=== PATIENT | male | born 1940 | race Caucasian/White ===

== ENCOUNTER 2018-10-21 15:58 | Observation (INO) ==
[2018-10-21] MEDS ORDERED: Aspirin 81 MG TAB.CHEW PO ONE (16:10)
[2018-10-21] MEDS ORDERED: Nitroglycerin 0.4 MG TAB.SUBL SL PRN (16:11)
--- NOTE | 2018-10-21 16:15 | Emergency Department Note ---
Disposition Clinical Impression: Palpitations, Lightheaded Chest pain Qualifiers: Chest pain type: unspecified Qualified Code(s): R07.9 - Chest pain, unspecified Disposition: Admitted As Inpatient Condition: Fair Referrals: Promise Dunbar MD [Primary Care Provider] - Forms: ED Satisfaction Letter Chest Pain HPI - General Chief Complaint: ED Chest Pain Stated Complaint: "A-Fib" Time Seen by Provider: 10/21/18 16:01 Source: patient Mode of arrival: private vehicle Limitations: no limitations Vital Signs Reviewed: Yes Nursing Notes Reviewed: Yes - History of Present Illness HPI Narrative: 78-year-old male history of hypertension, previous ablation for ventricular tachycardia in 1997 presents to the ER with complaint of chest pressure and lightheadedness. The patient reports this is been an on and off issue for the last few months. It happens roughly 1-2 times a week. He has been seen by his primary care provider who did a 30 day Holter monitor. They saw them last week who said he had "an event" but is not sure exactly what it was. They are currently attempting to see electrophysiology here but were requiring records from his prior ablation. States that today his pressure started this morning more severe and lasted longer than usual up until arrival to the ER. Also states that he feels lightheaded with the events. His pain is improved to a 3 upon arrival. No other complaints. Pt complaint: chest pain Onset (ago): week(s) Duration: intermittent Pain Location: left chest Severity: mild Severity scale (1-10): 3 Quality: heaviness Pain Radiation: none Improves with: nothing Worsens with: nothing Associated symptoms: Reports: other (Near-syncope) Treatments prior to arrival chest pain: aspirin All systems ED: reviewed and negative except as stated. Cardiovascular: Reports: chest pain, palpitations Respiratory: Denies: dyspnea Gastrointestinal: Denies: abdominal pain, nausea, vomiting Physical Exam - General Limitations: no limitations General appearance: alert, in no apparent distress - Head Head exam: atraumatic, normocephalic, normal inspection - Eye Eye exam: Present: normal appearance - ENT ENT exam: normal exam - Neck Neck exam: Present: normal inspection - Chest Chest inspection: Present: normal inspection, symmetric chest wall rise - Respiratory Respiratory exam: Present: normal lung sounds bilaterally - Cardiovascular Cardiovascular exam: Present: regular rate, normal rhythm, normal heart sounds - Abdominal Exam Abdominal exam: Present: soft, Non-Tender. Absent: tenderness, distention, rigidity - Extremities Exam Extremities exam: Present: normal inspection, full ROM - Expanded Upper Extremity Exam Shoulder exam: Present: normal inspection, full ROM Arm exam: Present: normal inspection, full ROM Elbow exam: Present: normal inspection, full ROM Forearm/Wrist exam: Present: normal inspection, full ROM Hand exam: Present: normal inspection, full ROM - Expanded Lower Extremity Exam Hip/Pelvis exam: Present: normal inspection, full ROM Upper leg exam: Present: normal inspection, full ROM Knee exam: Present: normal inspection, full ROM Lower leg exam: Present: normal inspection, full ROM Ankle exam: Present: normal inspection, full ROM Foot/toe exam: Present: normal inspection, full ROM - Skin Skin exam: Present: warm, dry Course Course Narrative: Patient seen and examined. Vital signs reviewed. Plan for EKG, chest x-ray, labs including troponin. I discussed with the patient that he likely requires admission. We will give him aspirin and nitroglycerin here. Vital Signs Temperature 98.4 F 10/21/18 16:11 Pulse Rate 86 10/21/18 16:11 Respiratory Rate 18 10/21/18 16:11 Blood Pressure 176/85 10/21/18 16:11 O2 Sat by Pulse Oximetry 97 10/21/18 16:11 Temperature 98.4 F 10/21/18 16:11 Pulse Rate 85 10/21/18 17:06 Respiratory Rate 16 10/21/18 17:06 Blood Pressure 163/92 10/21/18 17:06 O2 Sat by Pulse Oximetry 97 10/21/18 17:06 Oxygen Delivery Oxygen Delivery Room Air Chest Pain - [facility] Narrative Medical decision making narrative: 78-year-old male presenting with chest pain, palpitations and near syncope. He is well-appearing here. EKG is unremarkable. Chest x-ray and labs are grossly unremarkable. Given his prior history of ventricular tachycardia requiring ablation and similar although less severe symptoms this time we feel it is prudent for admission. Patient agreeable. The patient is admitted to the hospitalist service. - Lab Data Lab results reviewed: Yes I reviewed the patient's lab results. Result diagrams: 10/21/18 16:27 10/21/18 16:27 Lab Results 12/16/18 12/16/18 12/16/18 Range/Units 16:27 16:27 16:27 WBC 6.0 (4.3-11.1) K/mcL RBC 5.32 (4.19-5.50) M/mcL Hgb 15.9 (12.9-16.9) g/dL Hct 45.2 (37.5-50.1) % MCV 85.0 (83.0-100.0) fL MCH 29.9 (28.0-33.3) pg MCHC 35.2 (31.6-35.5) g/dL RDW 13.7 (11.5-14.5) % Plt Count 242 (140-400) K/mcL MPV 9.2 L (9.4-12.4) fL Immature Gran % 0.3 (0-4) % Seg Neutrophils % 61.5 % Lymphocytes % 28.9 % Monocytes % 7.0 % Eosinophils % 1.8 % Basophils % 0.5 % Neutrophils # 3.7 (1.6-8.9) K/mcL Lymphocytes # 1.7 (0.6-4.6) K/mcL Monocytes # 0.4 (0.0-1.3) K/mcL Eosinophils # 0.1 (0.0-0.6) K/mcL Basophils # 0.0 (0.0-0.2) K/mcL PT 11.8 (9.4-12.1) Seconds INR 1.0 APTT 30.4 (26.0-36.0) Seconds Sodium 136 (136-145) mEq/L Potassium 4.1 (3.5-5.1) mEq/L Chloride 102 (98-107) mEq/L Carbon Dioxide 29 (23-29) mEq/L BUN 23 (8-23) mg/dL Creatinine 0.91 (0.70-1.30) mg/dL Est GFR ( Amer) > 60 (> 60) Est GFR (Non-Af Amer) > 60 (> 60) BUN/Creatinine Ratio 25 (6-26) Glucose 116 H (70-105) mg/dL Calculated Osmolality 287 (280-300) Calcium 9.3 (8.6-10.3) mg/dL Troponin I < 0.03 (< 0.04) ng/mL TSH 4.784 (0.340-5.600) mcIU/mL - Radiology Data Radiology results reviewed: Yes I reviewed the patient's radiology results. Chest X-Ray 10/21/18 16:10 IMPRESSION: No acute process. D/ / Danilo Xavier MD / Danilo Xavier MD Interpreting Provider: Danilo Xavier MD - EKG Data EKG attestation: Yes I reviewed and interpreted this EKG. EKG results narrative: EKG demonstrates sinus rhythm with a rate of 85 beats or minute. Normal axis. Normal intervals. Normal R-wave progression. No gross ST elevations or depressions. No acute ischemic findings. No significant changes from previous EKG dated 08/08/18. Heart Score - Score History: Moderately Suspicious EKG: Normal Age: Greater than 65 Risk Factors: 1-2 risk factors Troponin: Less than normal limit HEART Score Total: 4 S.B.A.Carine. - Fatmata.Judi.AJustyn Situation: Demographics, MOA Background: Presenting Complaint, Relevant PMH, Meds, & Allergies Assessment: Course and respsone to treatment, Exam Concerns, Patient/Family Expectation, Pertinant Lab Results Recommendation: Barrier(s) to disposition, Recommendation based on pending studies, treatments, or consults S.B.A.RConsuelo Report Given to: Dr. Shilo Baez Repor Time: 17:16
[2018-10-21 16:38] LABS: Basophils % 0.5 %; Eosinophils # 0.1 K/mcL (0.0-0.6); Eosinophils % 1.8 %; Hematocrit 45.2 % (37.5-50.1); Hemoglobin 15.9 g/dL (12.9-16.9); Immature Granulocytes % 0.3 % (0-4); Lymphocytes # 1.7 K/mcL (0.6-4.6); Lymphocytes % 28.9 %; Mean Corpuscular HGB Conc 35.2 g/dL (31.6-35.5); Mean Corpuscular Hemoglobin 29.9 pg (28.0-33.3); Mean Platelet Volume 9.2 fL (9.4-12.4); Monocytes # 0.4 K/mcL (0.0-1.3); Neutrophils # 3.7 K/mcL (1.6-8.9); Platelet Count 242 K/mcL (140-400); Red Blood Count 5.32 M/mcL (4.19-5.50); Red Cell Distribution Width 13.7 % (11.5-14.5); Segmented Neutrophils % 61.5 %
[2018-10-21 16:44] LABS: Prothrombin Time 11.8 Seconds (9.4-12.1)
[2018-10-21 16:47] LABS: Activated Partial Thrombo Time 30.4 Seconds (26.0-36.0)
[2018-10-21 16:59] LABS: BUN/Creatinine Ratio 25 (6-26); Blood Urea Nitrogen 23 mg/dL (8-23); Calcium 9.3 mg/dL (8.6-10.3); Carbon Dioxide 29 mEq/L (23-29); Chloride 102 mEq/L (98-107); Glucose 116 mg/dL (70-105); Osmolality,Calculated 287 (280-300); Potassium 4.1 mEq/L (3.5-5.1); Sodium 136 mEq/L (136-145); eGFR For Non-African Americans > 60 (> 60)
[2018-10-21 17:00] LABS: Troponin I < 0.03 ng/mL (< 0.04)
[2018-10-21 17:14] LABS: Thyroid Stimulating Hormone 4.784 mcIU/mL (0.340-5.600)
[2018-10-21] MEDS ORDERED: Naloxone 0.4 MG/ML INJ IVP PRN (17:26)
--- NOTE | 2018-10-21 17:33 | Emergency Department Note ---
Disposition Clinical Impression: Palpitations, Lightheaded Chest pain Qualifiers: Chest pain type: unspecified Qualified Code(s): R07.9 - Chest pain, unspecified Disposition: Admitted As Inpatient Condition: Fair Referrals: Promise Dunbar MD [Primary Care Provider] - General Adult HPI - General Chief complaint: ED Chest Pain Stated complaint: "A-Fib" Time Seen by Provider: 10/21/18 16:01 Source: patient Mode of arrival: private vehicle Limitations: no limitations - History of Present Illness Pain Scale: 3 Cardiovascular: Reports: chest pain, palpitations Respiratory: Denies: dyspnea Gastrointestinal: Denies: abdominal pain, nausea, vomiting Past Medical History - Past Medical History Medical history: Reports: cancer, hypertension Psychiatric history: Reports: no psych history - Social History Smoking Status: Never smoker Smokeless Tobacco Status: No Alcohol use: Reports: none Drug use: Reports: none Physical Exam - General Limitations: no limitations General appearance: alert, in no apparent distress Course Vital Signs Temperature 98.4 F 10/21/18 16:11 Pulse Rate 86 10/21/18 16:11 Respiratory Rate 18 10/21/18 16:11 Blood Pressure 176/85 10/21/18 16:11 O2 Sat by Pulse Oximetry 97 10/21/18 16:11 Temperature 98.4 F 10/21/18 16:11 Pulse Rate 85 10/21/18 17:06 Respiratory Rate 16 10/21/18 17:06 Blood Pressure 163/92 10/21/18 17:06 O2 Sat by Pulse Oximetry 97 10/21/18 17:06 Oxygen Delivery Oxygen Delivery Room Air Medical Decision Making - Lab Data Result diagrams: 10/21/18 16:27 10/21/18 16:27 Lab Results 10/21/18 10/21/18 10/21/18 Range/Units 16:27 16:27 16:27 WBC 6.0 (4.3-11.1) K/mcL RBC 5.32 (4.19-5.50) M/mcL Hgb 15.9 (12.9-16.9) g/dL Hct 45.2 (37.5-50.1) % MCV 85.0 (83.0-100.0) fL MCH 29.9 (28.0-33.3) pg MCHC 35.2 (31.6-35.5) g/dL RDW 13.7 (11.5-14.5) % Plt Count 242 (140-400) K/mcL MPV 9.2 L (9.4-12.4) fL Immature Gran % 0.3 (0-4) % Seg Neutrophils % 61.5 % Lymphocytes % 28.9 % Monocytes % 7.0 % Eosinophils % 1.8 % Basophils % 0.5 % Neutrophils # 3.7 (1.6-8.9) K/mcL Lymphocytes # 1.7 (0.6-4.6) K/mcL Monocytes # 0.4 (0.0-1.3) K/mcL Eosinophils # 0.1 (0.0-0.6) K/mcL Basophils # 0.0 (0.0-0.2) K/mcL PT 11.8 (9.4-12.1) Seconds INR 1.0 APTT 30.4 (26.0-36.0) Seconds Sodium 136 (136-145) mEq/L Potassium 4.1 (3.5-5.1) mEq/L Chloride 102 (98-107) mEq/L Carbon Dioxide 29 (23-29) mEq/L BUN 23 (8-23) mg/dL Creatinine 0.91 (0.70-1.30) mg/dL Est GFR ( Amer) > 60 (> 60) Est GFR (Non-Af Amer) > 60 (> 60) BUN/Creatinine Ratio 25 (6-26) Glucose 116 H (70-105) mg/dL Calculated Osmolality 287 (280-300) Calcium 9.3 (8.6-10.3) mg/dL Troponin I < 0.03 (< 0.04) ng/mL TSH 4.784 (0.340-5.600) mcIU/mL Attestation Statement - Attestation Attestation: I examined this patient and my medical decision-making was reviewed with the Resident Physician. I agree with the documented findings, disposition and treatment plan as described except to the extent set forth below. 78 year old male presents to the eD with complaints of chest pain and is currenlty getting an outpatinet workup and had a history of vtach. Patinet chest pain free now. We will admit to medicine for CP r/o ACS workup
--- NOTE | 2018-10-21 17:37 | Internal Med History&Physical ---
Date of Encounter: 10/21/18 Time of Encounter: 17:32 Internal Medicine - H&P: HPI Chief complaint: Palpitations Admitted From: Home Plans for Post Hospital Care: Home History of present illness: Mr. Smith is a 78 year old male with history of atrial fibrillation status post ablation 20 years ago not on anticoagulation and hypertension presented to the emergency department with complaint of palpitations. His symptoms started about a few months ago and have been intermittent. He reports that they happen about 1-2 times per week. He denies episodes occurring more frequently recently. He cannot recall aggravating or alleviating factors. During them episodes which last about a few seconds he also feels chest heaviness with severity of 3 out of 10 located in his left chest without radiation. He denies shortness of breath, nausea, diaphoresis, PND, or orthopnea. His palpitations and chest discomforts are at times associated with dizziness which self resolves with the palpitations. He denies head trauma, vision loss, recent falls or weakness in any of his extremities. He has visited his primary care physician and a 30 day Holter monitor was recently prescribed and showed normal sinus rhythm and episodes of junctional tachycardia which correlated with the symptoms noted. Echocardiogram was also ordered which showed an LVEF of 60-65% with moderate LV dysfunction and moderately dilated left atrium. While in the emergency department troponin was found to be negative, TSH was within normal limit, EKG showed normal sinus rhythm and he was endorsed for admission for further evaluation of his palpitations. Past Med Surg Social Fam HX - Past Medical History Medical history: cancer, hypertension Additional medical history: prostate cancer Psychiatric history: no psych history - Past Surgical History Additional surgical history: ablation, 5 eye surgerys - Social History Smoking Status: Never smoker Smokeless Tobacco Status: No Alcohol use: none Drug use: none Internal Medicine - H&P: Meds Celecoxib [Celebrex] 10/21/18 [History] Lisinopril [Zestril] 10/21/18 [History] No Known Home Drugs 10/21/18 [History] All Systems PM: A 10-system review of systems was performed and is negative for pertinent findings except as documented above in the HPI. 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 Bilateral breath sounds are clear without wheezing, crackles, or rhonchi. Cardiovascular: Regular rate and rhythm. s1 and s2 No clicks, rubs, gallops, or murmors. Abdomen: Bowel sounds present normoactive x-4 quadrants. Abdomen is soft, nondistended. no Epigastric tenderness. No guarding or rebound. No organomegaly noted musculoskeletal: Spontaneously moving all extremities. no edema, no calf tenderness Skin: warm, dry, intact. Neuro: Alert and oriented x4. Sensation light touch intact. Cranial nerves 2- 12 is intact. rapid hand movements intact, [id number] intact, Psych: Patient's affect is normal Internal Med - H&P Results - Labs CBC & Chem 7: 10/21/18 16:27 10/21/18 16:27 Labs: Short CBC 10/21/18 Range/Units 16:27 WBC 6.0 (4.3-11.1) K/mcL Hgb 15.9 (12.9-16.9) g/dL Hct 45.2 (37.5-50.1) % Plt Count 242 (140-400) K/mcL Neutrophils # 3.7 (1.6-8.9) K/mcL BMP 10/21/18 16:27 Sodium 136 Potassium 4.1 Chloride 102 Carbon Dioxide 29 BUN 23 Creatinine 0.91 Glucose 116 H Calcium 9.3 Cardiac Enzymes 10/21/18 Range/Units 16:27 Troponin I < 0.03 (< 0.04) ng/mL - EKG Data -: EKG Interpreted by Myself (Normal sinus rhythm) - Impressions ITS Impressions Chest X-Ray 10/21/18 16:10 IMPRESSION: No acute process. D/ / Danilo Xavier MD / Danilo Xavier MD Interpreting Provider: Danilo Xavier MD - Assessment and plan (1) Palpitations Current Visit: Yes Status: Acute Assessment and plan: Has had history of atrial fibrillation status post ablation in 1997 Echocardiogram with LVEF of 60-65% and moderately dilated left atrium and moderate left ventricular diastolic dysfunction- full report below Electrophysiology consulted will follow recommendations Continue telemetry monitoring TSH within normal limit First troponin was negative. Follow two more troponins every 6 hours along with EKG We will follow a.m. labs continue home medications once verified Event monitor 10/03/18 1. Baseline rhythm normal sinus. 2. Episode of junctional tachycardia whichcorrelated with symptoms,noted Holter monitor 08/2018- Totals: There were [id number] total beats, including ectopy. Average HR was 70. Minimum HR of 51 occurred at 08:55D1 and maximum HR of 110 occurred at 16:39D1. Ventricular Ectopy consisted of 3 total single beats. Supraventricular Ectopy consisted of 72 total beats averaging 1.5 per hour. There were 70 single PACs and 2 paired PACs. tte : Findings: Study Quality * Technically adequate exam. ECG Findings * Normal sinus rhythm. Left Ventricle * LVEF 60-65%. * Normal LV chamber size, wall thickness and function. * Moderate left ventricular diastolic dysfunction. Right Ventricle * Normal right ventricular structure and function. Left Atrium * Moderately dilated left atrium. Right Atrium * Normal right atrial size. Aortic Valve * Aortic valve not well visualized. * Mild aortic regurgitation. * No aortic stenosis. Mitral Valve * Normal mitral valve structure and function. * No mitral stenosis. * Trace mitral regurgitation. Tricuspid Valve * Normal tricuspid valve structure and function. * Trace tricuspid regurgitation. * No evidence of pulmonary hypertension. Pulmonic Valve * Normal pulmonic valve structure and function. * Trace pulmonic regurgitation. Aorta * Normally sized aortic root. Pericardium * The pericardium appears normal. IVC * Normal IVC dimensions and inspiratory collapse. Pulmonary Artery * Normal visualized portions of the main pulmonary artery. (2) Lightheaded Current Visit: Yes Status: Acute Assessment and plan: Mostly secondary to palpitations Will get CT head rest of the work up pending above result Received aspirin 325 in the emergency department we will continue with 81 mg daily Lipid panel in the morning (3) DVT prophylaxis Current Visit: Yes Status: Acute Assessment and plan: heparin sc - Time Spent With Patient Total time spent is greater than 50% in coordination of care (as documented) at patient's floor/unit and/or counseling patient:
[2018-10-21 21:09] LABS: Amphetamine Screen,Urine Negative ng/mL (Cutoff=1000); Barbiturate Screen,Urine Negative ng/mL (Cutoff=200); Benzodiazepines Screen,Urine Negative ng/mL (Cutoff=200); Cannabinoid Screen,Urine Negative ng/mL (Cutoff = 50); Cocaine Screen,Urine Negative ng/mL (Cutoff= 300); Opiate Screen,Urine Negative ng/mL (Cutoff=300); Phencyclidine Screen,Urine Negative ng/mL (Cutoff=25)
[2018-10-21] MEDS: *HR* Heparin 5,000 UNIT/ML VIAL SQ SCH (22:39)
[2018-10-22] MEDS: *HR* Heparin 5,000 UNIT/ML VIAL SQ SCH (05:24)
[2018-10-22 05:38] LABS: Basophils % 0.5 %; Eosinophils # 0.2 K/mcL (0.0-0.6); Eosinophils % 3.2 %; Hematocrit 42.8 % (37.5-50.1); Hemoglobin 14.8 g/dL (12.9-16.9); Immature Granulocytes % 0.5 % (0-4); Lymphocytes # 1.8 K/mcL (0.6-4.6); Mean Corpuscular HGB Conc 34.6 g/dL (31.6-35.5); Mean Corpuscular Hemoglobin 29.4 pg (28.0-33.3); Mean Corpuscular Volume 84.9 fL (83.0-100.0); Mean Platelet Volume 9.7 fL (9.4-12.4); Monocytes # 0.5 K/mcL (0.0-1.3); Monocytes % 7.9 %; Neutrophils # 3.2 K/mcL (1.6-8.9); Platelet Count 222 K/mcL (140-400); Red Blood Count 5.04 M/mcL (4.19-5.50); Red Cell Distribution Width 13.7 % (11.5-14.5); Segmented Neutrophils % 56.9 %
[2018-10-22 06:00] LABS: Troponin I < 0.03 ng/mL (< 0.04)
[2018-10-22 06:05] LABS: Chol/HDL Ratio 4.1 (0-4.9)
[2018-10-22 06:16] LABS: BUN/Creatinine Ratio 24 (6-26); Blood Urea Nitrogen 19 mg/dL (8-23); Calcium 8.9 mg/dL (8.6-10.3); Carbon Dioxide 28 mEq/L (23-29); Chloride 106 mEq/L (98-107); Glucose 99 mg/dL (70-105); Magnesium 2.2 mg/dL (1.6-2.6); Osmolality,Calculated 294 (280-300); Phosphorous 3.2 mg/dL (2.7-4.5); Potassium 3.8 mEq/L (3.5-5.1); Sodium 141 mEq/L (136-145); eGFR For Non-African Americans > 60 (> 60)
[2018-10-22 06:53] VITALS: BP 165/82
[2018-10-22] MEDS ORDERED: Aspirin 81 MG TAB.CHEW PO SCH (09:00)
--- NOTE | 2018-10-22 10:09 | Cardiology Consult Note ---
<Josh Solano R - Last Filed: 10/22/18 11:02> Date of Encounter: 10/22/18 Time of Encounter: 10:05 Assessment and Plan (1) Palpitations Current Visit: Yes Status: Acute Hx of A-Fib s/p ablation 20 years ago. No confirmed recurrence. Intermittent palpitations x 5-6 weeks. 30 day event monitor 10/03/18 showed underlying rhythm sinus with an episode of junctional tachycardia which correlated with the symptoms noted. ECG on admission, SR. K, Mag, TSH WNL. 24 hr tele AVG HR 69, SR. No significant pauses or arrhythmias noted. TTE 08/2018 LVEF 60-65% with moderate LVDD and moderately dilated left atrium. Will add low dose BB--Lopressor 25mg BID. Will discuss with review with Dr. Nguyen. Anticipate sign off and outpt EP follow-up with Dr. Juvenal Mao. (2) History of atrial fibrillation Current Visit: Yes Status: Chronic Hx of A-Fib s/p ablation 20 years ago. As above, no documented recurrence. Not on full AC. Continue ASA. Discussion w patient/family: The assessment and plan as outlined above was discussed with the patient and/or family members who expressed understanding and agreement. All questions were answered. Thank you for involving us in the care of your patient. Please call with any questions. I will discuss and review with Dr. Nguyen and make changes as necessary. History of Present Illness Consult date: 10/22/18 Consult reason: palpitations Chief complaint: palpitations History of present illness: Mr. Smith is a 78 year old male with PMH of atrial fibrillation s/p ablation 20 years ago not on anticoagulation, HTN, that presented to the ED with complaint of palpitations. His symptoms started 5-6 weeks ago and have been intermittent. He reports that they happen about 1-2 times per week. During episodes which last a few seconds he also feels chest heaviness in his left chest without radiation. He denies shortness of breath, nausea, diaphoresis, PND, or orthopnea. His PCP ordered a 30 day event monitor and showed underlying rhythm sinus with an episode of junctional tachycardia which correlated with the symptoms noted. Echocardiogram 08/2018 LVEF 60-65% with moderate LVDD and moderately dilated left atrium. Cardiology consulted for further recs. Pt denies acute complaints this AM. Past Med Surg Social Fam HX - Past Medical History Medical history: cancer, hypertension Additional medical history: prostate cancer Psychiatric history: no psych history - Past Surgical History Surgical History: hip replacement Additional surgical history: ablation, 5 eye surgerys - Social History Smoking Status: Never smoker Smokeless Tobacco Status: No Alcohol use: none Drug use: none - Family History Mother Living Status: Age at : 70 Cause of : IA Medications and Allergies RX: Celecoxib [Celebrex] 200 mg PO DAILY 10/21/18 [History] RX: Lisinopril [Zestril] 5 mg PO DAILY 10/21/18 [History] Gluc HCl/Csa/Collagen/Hyalur A [Glucosamine Chondroitin Cap] 1 each PO DAILY 10/22/18 [History] Lactobacillus Combination No.8 [Adult Probiotic] 1 cap PO DAILY 10/22/18 [History] Multivitamin [One Daily Essential] 1 each PO DAILY 10/22/18 [History] RX: Aspirin 81 mg PO DAILY #30 tab.chew 10/22/18 [Rx] RX: Metoprolol [Lopressor] 25 mg PO BID 30 Days #60 tablet 10/22/18 [Rx] Allergy/AdvReac Type Severity Reaction Status Date / Time No Known Allergies Allergy Verified 10/21/18 17:54 All Systems Review: The remainder of the systems were reviewed and are negative - Cardiovascular Cardiovascular: as per HPI, chest pain at rest, palpitations Physical Examination Vital Signs, Last 4 Hours Temp Pulse Resp BP Pulse Ox 10/22/18 06:52 97.4 F L 69 16 165/82 97 Vital Signs Temp Pulse Resp BP Pulse Ox 10/22/18 06:52 97.4 F L 69 16 165/82 97 10/22/18 04:04 98.0 F 63 16 139/74 96 10/21/18 23:28 98.1 F 75 16 158/77 96 10/21/18 19:06 98.1 F 77 16 176/79 99 10/21/18 17:06 85 16 163/92 97 10/21/18 16:11 98.4 F 86 18 176/85 97 Intake and Output 10/21/18 10/22/18 10/22/18 23:59 07:59 15:59 Intake Total 240 / 240 Balance 240 / 240 Intake: Oral 240 / 240 Other: Meal Dinner Percent of Meal Consumed 95% Weight 77.564 kg General: Conversant, No Apparent Distress HEENT: Atraumatic, Normocephaly, Mucus Membranes Moist Neck: No JVD, Normal carotid pulses Cardiac: Reg Rate and Rhythm, Normal S1 and S2, No Murmur Lungs: Normal Breath Sounds, No Wheeze, Rales, Rhonchi Neuro: Alert and responsive, No focal deficits noted Abdomen: Soft, Non-Tender Skin: No rashes noted on visualized skin Musculoskeletal: No Chest Wall Tenderness Extremities: No Clubbing, No Cyanosis, No Edema, Normal Pulses Results 10/22/18 04:44 10/22/18 04:44 Lab Results 10/21/18 10/21/18 10/21/18 16:27 16:27 16:27 WBC 6.0 Hgb 15.9 Hct 45.2 Plt Count 242 INR 1.0 APTT 30.4 Sodium 136 Potassium 4.1 Chloride 102 Carbon Dioxide 29 BUN 23 Creatinine 0.91 Glucose 116 H Calcium 9.3 Magnesium Troponin I < 0.03 TSH 4.784 10/21/18 10/22/18 10/22/18 21:39 04:44 04:44 WBC 5.7 Hgb 14.8 Hct 42.8 Plt Count 222 INR APTT Sodium 141 Potassium 3.8 Chloride 106 Carbon Dioxide 28 BUN 19 Creatinine 0.80 Glucose 99 Calcium 8.9 Magnesium 2.2 Troponin I < 0.03 < 0.03 TSH Short CBC 10/22/18 10/21/18 Range/Units 04:44 16:27 WBC 5.7 6.0 (4.3-11.1) K/mcL Hgb 14.8 15.9 (12.9-16.9) g/dL Hct 42.8 45.2 (37.5-50.1) % Plt Count 222 242 (140-400) K/mcL Neutrophils # 3.2 3.7 (1.6-8.9) K/mcL BMP 10/22/18 10/21/18 Range/Units 04:44 16:27 Sodium 141 136 (136-145) mEq/L Potassium 3.8 4.1 (3.5-5.1) mEq/L Chloride 106 102 (98-107) mEq/L Carbon Dioxide 28 29 (23-29) mEq/L BUN 19 23 (8-23) mg/dL Creatinine 0.80 0.91 (0.70-1.30) mg/dL Glucose 99 116 H (70-105) mg/dL Calcium 8.9 9.3 (8.6-10.3) mg/dL Cardiac Enzymes 10/22/18 10/21/18 10/21/18 Range/Units 04:44 21:39 16:27 Troponin I < 0.03 < 0.03 < 0.03 (< 0.04) ng/mL Impressions Chest X-Ray 10/21/18 16:10 IMPRESSION: No acute process. D/ / Danilo Xavier MD / Danilo Xavier MD Interpreting Provider: Danilo Xavier MD Active Medications Aspirin (Aspirin) 81 mg PO DAILY [facility] Stop: 04/23/19 09:01 Heparin Sodium (Porcine) (Heparin) 5,000 unit SQ Q8HCO ERVIN Stop: 04/22/19 22:01 Last Admin: 10/22/18 05:24 Dose: Not Given Metoprolol Tartrate (Lopressor) 25 mg PO BID [facility] Stop: 04/23/19 10:01 Naloxone HCl (Narcan) 0.4 mg IVP Q2MIN PRN PRN Reason: SEE COMMENTS Stop: 04/22/19 17:27 Nitroglycerin (Nitroglycerin) 0.4 mg SL Q5MIN PRN PRN Reason: Chest Pain Stop: 04/22/19 16:12 - Imaging and Cardiology Echo: report reviewed Cardiac cath: report reviewed - EKG Interpretation EKG results cardiology: personally reviewed (SR), other (24 hr tele AVG HR 69, SR) Consult Discharge Plan - Plan Referrals: Promise Dunbar MD [Primary Care Provider] - 10/29/18 9:00 am Juvenal Mao MD [Partnered Physician] - Prescriptions: RX: Aspirin 81 mg PO DAILY #30 tab.chew RX: Metoprolol [Lopressor] 25 mg PO BID 30 Days #60 tablet <Nereida Nguyen - Last Filed: 10/22/18 14:53> Date of Encounter: 10/22/18 - Attending Attestation I have personally performed a face to face evaluation on this patient. I have reviewed and agree with the care plan. History and Exam by me shows: 78 YOM s/p VT ablation back in 1997 now having pisodes of dizziness and palpitations similiar to his past episodes but less intense. Will obtain records for review and hold DC for now untill cleared by EP Assessment and Plan Discussion w patient/family: The assessment and plan as outlined above was discussed with the patient and/or family members who expressed understanding and agreement. All questions were answered. Thank you for involving us in the care of your patient. Please call with any questions. History of Present Illness History of present illness: Mr. Smith is a 78 year old male All Systems Review: The remainder of the systems were reviewed and are negative Results 10/22/18 04:44 10/22/18 04:44 Lab Results 10/21/18 10/21/18 10/21/18 16:27 16:27 16:27 WBC 6.0 Hgb 15.9 Hct 45.2 Plt Count 242 INR 1.0 APTT 30.4 Sodium 136 Potassium 4.1 Chloride 102 Carbon Dioxide 29 BUN 23 Creatinine 0.91 Glucose 116 H Calcium 9.3 Magnesium Troponin I < 0.03 TSH 4.784 10/21/18 10/22/18 10/22/18 21:39 04:44 04:44 WBC 5.7 Hgb 14.8 Hct 42.8 Plt Count 222 INR APTT Sodium 141 Potassium 3.8 Chloride 106 Carbon Dioxide 28 BUN 19 Creatinine 0.80 Glucose 99 Calcium 8.9 Magnesium 2.2 Troponin I < 0.03 < 0.03 TSH
--- NOTE | 2018-10-22 10:31 | Discharge Summary ---
- NOTES TO OUTPATIENT PROVIDER Notes to Outpatient Provider: follow up with Dr. mao as OP for palpitations Orders not resulted at time of discharge: Pending orders 10/21/18 16:10 ECG 12 lead ECG [ECG] Stat 10/21/18 17:15 CT head/brain wo con [CT] Stat 10/21/18 22:00 ECG 12 lead ECG [ECG] Routine Date of Encounter: 10/22/18 Time of Encounter: 10:27 - Discharge Diagnosis (1) Palpitations Priority: Primary Status: Acute (2) Lightheaded Priority: Secondary Status: Acute (3) DVT prophylaxis Priority: Secondary Status: Acute Hospital course: "Mr. Smith is a 78 year old male with history of atrial fibrillation status post ablation 20 years ago not on anticoagulation and hypertension presented to the emergency department with complaint of palpitations. His symptoms started about a few months ago and have been intermittent. He reports that they happen about 1-2 times per week. He denies episodes occurring more frequently recently. He cannot recall aggravating or alleviating factors. During them episodes which last about a few seconds he also feels chest heaviness with severity of 3 out of 10 located in his left chest without radiation. He denies shortness of breath, nausea, diaphoresis, PND, or orthopnea. His palpitations and chest discomforts are at times associated with dizziness which self resolves with the palpitations. He denies head trauma, vision loss, recent falls or weakness in any of his extremities. He has visited his primary care physician and a 30 day Holter monitor was recently prescribed and showed normal sinus rhythm and episodes of junctional tachycardia which correlated with the symptoms noted. Echocardiogram was also ordered which showed an LVEF of 60-65% with moderate LV dysfunction and moderately dilated left atrium. While in the emergency department troponin was found to be negative, TSH was within normal limit, EKG showed normal sinus rhythm and he was endorsed for admission for further evaluation of his palpitations. Cardiology was consulted and he was started on low-dose beta severo and was provided with outpatient electrophysiology appointment with Dr. Juvenal Mao. He was also started on aspirin. Troponin followed [address] scan of the head was ordered however he refused to have the CT scan of the head performed. I discussed the risks and benefits and he understands and he still declines to have the CT scan of the head performed. TSH was 4.784. U tox was negative. Lipid panel showed mildly elevated triglycerides at 170 and he was counseled on diet and exercise. He is to have follow-up with his primary care physician and have lipid panel repeated in 3 months and for PCP to start lipid-lowering medications as per their discretion. Discharge discussed with: patient, family, ent consultant - Time Spent with Patient Total time spent providing and/or coordinating discharge services: Less than 30 minutes - Discharge Medications Prescriptions: Aspirin 81 mg PO DAILY #30 tab.chew Metoprolol [Lopressor] 25 mg PO BID 30 Days #60 tablet Home Medications: Celecoxib [Celebrex] 10/21/18 [History] Lisinopril [Zestril] 10/21/18 [History] Aspirin 81 mg PO DAILY #30 tab.chew 10/22/18 [Rx] Metoprolol [Lopressor] 25 mg PO BID 30 Days #60 tablet 10/22/18 [Rx] Allergies/Adverse Reactions: Allergy/AdvReac Type Severity Reaction Status Date / Time No Known Allergies Allergy Verified 10/21/18 17:54 Date of admission: 10/21/18 17:30 Primary care physician: Promise Dunbar MD Consults: 10/21/18 17:29 Consult to Electrophysiology (EP) [CONS] Stat Consulting Provider: Electrophysiology Jen Reason for Consult: history of afib s/p abalation 20 years ago now experiencing on/off palpitations similar to when he had Afib. holter monitor with Supraventricular Ectopy consisted of 72 total beats averaging 1.5 per hour. There were 70 single PACs and 2 paired PACs. 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 Bilateral breath sounds are clear without wheezing, crackles, or rhonchi. Cardiovascular: Regular rate and rhythm. s1 and s2 No clicks, rubs, gallops, or murmors. Abdomen: Bowel sounds present normoactive x-4 quadrants. Abdomen is soft, nondistended. no Epigastric tenderness. No guarding or rebound. No organomegaly noted musculoskeletal: Spontaneously moving all extremities. no edema, no calf tenderness Skin: warm, dry, intact. Neuro: Alert and oriented x4. Sensation light touch intact. Cranial nerves 2- 12 is intact. rapid hand movements intact, [id number] intact, Psych: Patient's affect is normal - Patient Status Disposition: Home, Self-Care Condition: Fair Functional capacity at discharge: independent ambulation Overall status at discharge: patient is progressing back to baseline - Discharge Instructions Follow Up With: Promise Dunbar MD [Primary Care Provider] - Forms: ED Satisfaction Letter - Diet and Activity Activity: increase activity as tolerated Diet: low fat, low cholesterol
--- NOTE | 2018-10-22 15:31 | Electrocardiograph Report ---
[address] [address] Test Date: 2018-10-21 Pat Name: Roger Smith Department: EXAM4 Room: 3B43 Gender: M [employer]: : 1940 Requested By: Vincent Calvo Order Number: [id number] Reading MD: Gurjit Pierce Measurements Intervals [place] Rate: 85 P: 55 HI: 180 QRS: 66 QRSD: 105 T: 22 QT: 350 QTc: 417 Interpretive Statements Sinus rhythm Electronically Signed On 10-22-2018 15:29:42 EST by Gurjit Pierce
[2018-10-23] MEDS ORDERED: Celecoxib 200 MG CAPSULE PO SCH (09:00)
== END 2018-10-22 15:45 | disposition home or self-care (01) ==
LOC: EMEROOARM 15:58 → 3BNU 15:58
PROVIDERS: ADMIT Internal Medicine; ATTEND Internal Medicine

== ENCOUNTER 2019-01-07 02:23 | Observation (INO) ==
--- NOTE | 2019-01-07 05:53 | Internal Med History&Physical ---
Date of Encounter: 01/07/19 Time of Encounter: 05:43 Internal Medicine - H&P: HPI Chief complaint: Vertigo/nausea and vomiting History of present illness: Mr. Smith is a 78 year old male with history of atrial fibrillation status post ablation 20 years ago not on anticoagulation and hypertension presented to [facility] initially due to symptoms of lightheadedness, vertigo associated with nausea and vomiting. Patient states he was in his usual state of health sitting at home watching TV about 9:30 tonight when he suddenly felt very lightheaded as though he was going to pass out. He has several episodes of nausea and vomiting associated with the sensation of the room spinning. Symptoms appear to be aggravated with changes in body position. At [facility] patient received Phenergan and IV fluids in the emergency department. He was noted to have nystagmus. Patient did have a brief episode of bradycardia that was asymptomatic with a heart rate in the 40s lasting only several seconds. Patient denies any recent illness. Denies any unilateral weakness, numbness or tingling, or dysarthria. 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 Laboratory workup at [facility] was otherwise unremarkable. A CT showed no acute intracranial abnormality. Patient was offered the opportunity to go home but felt too symptomatic to be discharged. Patient was transferred for further observation and telemetry. Past Med Surg Social Fam HX - Past Medical History Medical history: arthritis, cancer, hypertension Additional medical history: vertigo Psychiatric history: no psych history - Past Surgical History Surgical History: hip replacement Additional surgical history: cardiac ablasion - Social History Smoking Status: Never smoker Smokeless Tobacco Status: No Alcohol use: none Drug use: none - Family History Mother Living Status: Internal Medicine - H&P: Meds Celecoxib [Celebrex] 200 mg PO DAILY 10/21/18 [History] Lisinopril [Zestril] 5 mg PO DAILY 10/21/18 [History] Aspirin 81 mg PO DAILY #30 tab.chew 10/22/18 [Rx] Gluc HCl/Csa/Collagen/Hyalur A [Glucosamine Chondroitin Cap] 1 each PO DAILY 10/22/18 [History] Lactobacillus Combination No.8 [Adult Probiotic] 1 cap PO DAILY 10/22/18 [History] Multivitamin [One Daily Essential] 1 each PO DAILY 10/22/18 [History] Allergy/AdvReac Type Severity Reaction Status Date / Time No Known Allergies Allergy Verified 01/06/19 23:19 All Systems PM: A 10-system review of systems was performed and is negative for pertinent findings except as documented above in the HPI. - Constitutional Constitutional: no chills, no fever(s), no night sweats - EENT Eyes: no change in vision, no discharge, no pain, no photophobia Ears: no ear discharge, no ear pain, no tinnitus Nose, mouth and throat: no dysphagia, no nasal discharge, no neck pain, no sore throat - Cardiovascular Cardiovascular ROS IM: no chest pain, no diaphoresis, no dyspnea, no lightheadedness, no palpitations, no syncope - Respiratory Respiratory: no cough, no dyspnea, no wheezing, no excessive phlegm production - Gastrointestinal Gastrointestinal: no abdominal pain, no diarrhea, no hematemesis, no hematochezia, no melena, no nausea, no vomiting - Musculoskeletal Musculoskeletal ROS IM: no numbness, no tingling - Integumentary Integumentary IM: no rash, no unusual bruising - Neurological Neurological ROS: no confusion, no convulsions, no focal weakness, no numbness, no tingling, no tremor(s) - Hematologic/Lymphatic Hematologic/Lymphatic: no easy bruising - Constitutional Vitals: Temp Pulse Resp BP Pulse Ox 97.9 F 84 16 154/80 95 01/07/19 04:10 01/07/19 04:10 01/07/19 04:10 01/07/19 04:10 01/07/19 04:10 Exam: General: Alert and oriented 3 Skin:Normal color, no rash, no lesions. HEENT:EOM, pupils equal, round and reactive. Cardiovascular:Normal S1 & S2, no rubs, murmurs or gallops. No JVD. Pulse regular. Lungs:Normal breath sounds, no wheezes or crackles. Abdomen:Soft, non-tender, no rigidity. Extremities:No deformity, no edema or tenderness, no joint swelling or clubbing. Neurological:Normal cognition and motor skills. Nystagmus with head turning Pulses:Carotid and radial pulses normal +2. Rest of the physical exam is non contributory - Assessment and Plan (1) Vertigo Current Visit: Yes Status: Acute Assessment and plan: Patient reports sensation of the room spinning with changes in position that lasts a few seconds and resolve with remaining still consistent with benign paroxysmal positional vertigo. Low suspicion for a central etiology given lack of other neurological findings. Patient reports that he continues to have mild symptoms. -Consider meclizine -Consider MRI. (2) Nausea and vomiting Current Visit: Yes Status: Acute Assessment and plan: Reports of nausea and vomiting associated with vertigo or lightheadedness. Patient received fluids at [facility]. -Antiemetics as needed -No need to repeat labs as all within normal limits. Qualifiers: Vomiting type: unspecified Vomiting Intractability: non-intractable Qualified Code(s): R11.2 - Nausea with vomiting, unspecified (3) Lightheaded Current Visit: No Status: Acute Assessment and plan: Patient reports lightheadedness. Did have brief episode of bradycardia in the 40s observed on telemetry lasting only several seconds. Patient reportedly asy mptomatic at the time. Check orthostatics. (4) Bradycardia Current Visit: Yes Status: Acute Assessment and plan: Reported brief episode of bradycardia in the 40s. No reports of chest pain or shortness of breath. Laboratory workup unremarkable. Patient is currently not on a beta severo or any other AV jose maria blocking agent -Telemetry -We will obtain echocardiogram -Consider outpatient Holter monitor (5) Hypertension Current Visit: Yes Status: Acute Assessment and plan: Blood pressure stable. Resume lisinopril Qualifiers: Hypertension type: essential hypertension Qualified Code(s): I10 - Essential (primary) hypertension (6) DVT prophylaxis Current Visit: No Status: Acute Assessment and plan: Subcutaneous heparin - Time Spent With Patient Total time spent is greater than 50% in coordination of care (as documented) at patient's floor/unit and/or counseling patient:
[2019-01-07] MEDS ORDERED: Naloxone 0.4 MG/ML INJ IVP PRN (05:57)
[2019-01-07] MEDS ORDERED: Ondansetron 4 MG/2 ML VIAL IVP PRN (05:57)
[2019-01-07] MEDS ORDERED: *HR* Heparin 5,000 UNIT/ML VIAL SQ SCH (06:00)
[2019-01-07] MEDS ORDERED: Celecoxib 200 MG CAPSULE PO SCH (09:00)
[2019-01-07] MEDS ORDERED: Multivit/Ca/Min/Fe/FA 1 TAB TABLET PO SCH (09:00)
[2019-01-07] MEDS ORDERED: Lactobacillus 1 EACH CAP.SPRINK PO SCH (09:00)
[2019-01-07] MEDS ORDERED: GLUCOSAMINE CHONDROI PO SCH (09:00)
[2019-01-07] MEDS ORDERED: Aspirin 81 MG TAB.CHEW PO SCH (09:00)
[2019-01-07 10:34] VITALS: BP 154/68
--- NOTE | 2019-01-07 14:01 | Discharge Summary ---
- NOTES TO OUTPATIENT PROVIDER Notes to Outpatient Provider: Follow up with PCP in one week. Please take Meclizine 25mg PO TID as needed. If you still have persistent vertigo, please follow up with ENT specialist Orders not resulted at time of discharge: Pending orders 01/07/19 06:02 EV echocardiogram Routine Date of Encounter: 01/07/19 Time of Encounter: 13:58 - Discharge Diagnosis (1) Vertigo Priority: Primary Status: Acute (2) Lightheaded Priority: Secondary Status: Acute (3) Nausea and vomiting Priority: Secondary Status: Acute Qualifiers: Vomiting type: unspecified Vomiting Intractability: non-intractable Qualified Code(s): R11.2 - Nausea with vomiting, unspecified (4) Hypertension Priority: Secondary Status: Acute Qualifiers: Hypertension type: essential hypertension Qualified Code(s): I10 - Essential (primary) hypertension (5) DVT prophylaxis Priority: Secondary Status: Acute Hospital course: Mr. Smith is a 78 year old male with history of atrial fibrillation status post ablation 20 years ago not on anticoagulation and hypertension presented to [facility] initially due to symptoms of lightheadedness, vertigo associated with nausea and vomiting. Patient states he was in his usual state of health sitting at home watching TV about 9:30 tonight when he suddenly felt very lightheaded as though he was going to pass out. He has several episodes of nausea and vomiting associated with the sensation of the room spinning. Symptoms appear to be aggravated with changes in body position. Patient was admitted in the hospital and placed him on cardiac rehabilitation specialist. His CT of the head did not show any acute intracranial abnormality. Patient was given Phenergan and meclizine. Patient stated his symptoms improved today. He had an MRI done which came back is negative for any ischemia. His vertigo seems to be most likely position vertigo probably secondary to ear pathology. Off note he did mention he has chronic tinnitus problem. I did recommend to follow up with ENT specialist as an outpatient. Also placed him on meclizine as needed. - Time Spent with Patient Total time spent providing and/or coordinating discharge services: - Discharge Medications Prescriptions: New Meclizine HCl [Verticalm] 25 mg PO TID PRN #30 tablet PRN Reason: Vertigo Continue Lisinopril [Zestril] 5 mg PO DAILY Celecoxib [Celebrex] 200 mg PO DAILY Aspirin 81 mg PO DAILY #30 tab.chew Multivitamin [One Daily Essential] 1 each PO DAILY Lactobacillus Combination No.8 [Adult Probiotic] 1 cap PO DAILY Gluc HCl/Csa/Collagen/Hyalur A [Glucosamine Chondroitin Cap] 1 each PO DAILY Home Medications: Celecoxib [Celebrex] 200 mg PO DAILY 10/21/18 [History] Lisinopril [Zestril] 5 mg PO DAILY 10/21/18 [History] Aspirin 81 mg PO DAILY #30 tab.chew 10/22/18 [Rx] Gluc HCl/Csa/Collagen/Hyalur A [Glucosamine Chondroitin Cap] 1 each PO DAILY 10/22/18 [History] Lactobacillus Combination No.8 [Adult Probiotic] 1 cap PO DAILY 10/22/18 [History] Multivitamin [One Daily Essential] 1 each PO DAILY 10/22/18 [History] Meclizine HCl [Verticalm] 25 mg PO TID PRN #30 tablet 01/07/19 [Rx] Allergies/Adverse Reactions: Allergy/AdvReac Type Severity Reaction Status Date / Time No Known Allergies Allergy Verified 01/06/19 23:19 Date of admission: 01/07/19 03:58 Primary care physician: Rene Campos MD - Constitutional Vitals: Temp Pulse Resp BP Pulse Ox 98.0 F 85 16 154/68 96 01/07/19 10:32 01/07/19 10:32 01/07/19 10:32 01/07/19 10:34 01/07/19 10:32 General appearance: Present: A&O X 3, no acute distress, answers questions appropriately Exam: Gen: Alert, awake, Oriented to time,place and person Chest: Diminished breath sounds B/L, No wheezing, No crackles, No rales Heart: S1S2+ RRR No murmurs Abd: Soft, NT, BS +, No organomegaly Ext: No edema, pulses are palpable, No calf tenderness Neuro : Benign findings, no focal neuro deficits noticed Skin: No rash. - Patient Status Disposition: Home, Self-Care Condition: Good Overall status at discharge: patient is back to baseline - Discharge Instructions Follow Up With: Rene Campos MD [Primary Care Provider] - - Diet and Activity Activity: increase activity as tolerated Diet: low salt diet
== END 2019-01-07 14:58 | disposition home or self-care (01) ==
LOC: 3BNU → SUATTDRO 03:58
PROVIDERS: ADMIT Internal Medicine; ATTEND Family Medicine

== ENCOUNTER 2022-08-08 13:10 | Observation (INO) ==
[2022-08-08] MEDS ORDERED: Naloxone 0.4 MG/ML INJ IVP PRN (16:49)
[2022-08-08] MEDS ORDERED: Ondansetron 4 MG/2 ML VIAL IVP PRN (16:54)
[2022-08-08] MEDS: *HR* Heparin 5,000 UNIT/ML VIAL SQ SCH (20:15)
[2022-08-09 02:25] LABS: Basophils % 0.5 %; Eosinophils # 0.2 K/mcL (0.0-0.6); Eosinophils % 2.8 %; Hematocrit 40.9 % (37.5-50.1); Hemoglobin 14.3 g/dL (12.9-16.9); Immature Granulocytes % 0.3 % (0-4); Lymphocytes # 1.9 K/mcL (0.6-4.6); Mean Corpuscular Volume 85.9 fL (83.0-100.0); Mean Platelet Volume 9.3 fL (9.4-12.4); Monocytes # 0.5 K/mcL (0.0-1.3); Monocytes % 8.2 %; Neutrophils # 3.8 K/mcL (1.6-8.9); Platelet Count 215 K/mcL (140-400); Red Blood Count 4.76 M/mcL (4.19-5.50); Red Cell Distribution Width 13.9 % (11.5-14.5); Segmented Neutrophils % 59.2 %; White Blood Count 6.5 K/mcL (4.3-11.1)
[2022-08-09 02:36] LABS: INR 1.2; Prothrombin Time 12.9 Seconds (9.4-12.1)
[2022-08-09 02:41] LABS: Albumin 3.6 g/dL (3.5-5.7); Albumin/Globulin Ratio 2.1 (1.1-2.2); Bilirubin,Total 0.9 mg/dL (0.3-1.0); Calcium 8.7 mg/dL (8.6-10.3); Chol/HDL Ratio 3.4 (0-4.9); Globulin 1.7 g/dL (2.4-3.5); Magnesium 2.1 mg/dL (1.6-2.6); Potassium 3.6 mEq/L (3.5-5.1); Total Protein 5.3 g/dL (6.4-8.9)
[2022-08-09 02:57] LABS: Estimated Average Glucose 80 mg/dl; Hemoglobin A1C 4.4 %
[2022-08-09] MEDS: *HR* Heparin 5,000 UNIT/ML VIAL SQ SCH ×3 (05:12→19:32)
[2022-08-09] MEDS: Aspirin Enteric Coated 81 MG Tablet PO SCH (08:00)
[2022-08-09] MEDS ORDERED: lisinopriL 10 MG TABLET PO SCH (09:00)
[2022-08-09] MEDS ORDERED: lisinopriL 5 MG TABLET PO ONE (12:15)
[2022-08-09] MEDS ORDERED: hydrOXYzine pamoate 25 MG CAPSULE PO PRN (15:34)
[2022-08-10] MEDS: *HR* Heparin 5,000 UNIT/ML VIAL SQ SCH (05:12)
[2022-08-10] MEDS: Aspirin Enteric Coated 81 MG Tablet PO SCH (07:57)
[2022-08-10] MEDS ORDERED: amLODIPine 5 MG TABLET PO SCH (08:05)
[2022-08-10] MEDS ORDERED: lisinopriL 10 MG TABLET PO SCH ×2 (09:00)
[2022-08-10 10:57] VITALS: BP 161/71; PULSE 95; TEMP 97.6; O2SAT 97
== END 2022-08-10 13:07 | disposition home or self-care (01) ==
LOC: 3BNU → SUATTDRO 16:20
PROVIDERS: ADMIT Hospitalist; ATTEND Internal Medicine